=== PATIENT | male | born 1955 | race Caucasian/White ===

== ENCOUNTER 2017-02-14 11:11 | Inpatient (IN) | payer BC, MEDICARE ==
[~2017-02-14] VITALS: Ht 172.7 cm; Wt 68.1 kg
--- NOTE | ~2017-02-14 | CN ---
Consultation Report [facility] [address] [place]. [address] NAME: EVAN GIBBONS : 57 STATUS : ADM Elizabeth PAT#: [id number] AGE: 61 ADM/REG DATE : 02/14/17 MR#: [id number] REPORT SERV DATE: 02/15/17 DICTATED BY: JASON GIL DATE: 02/14/17 REPORT STATUS : Draft TRANSCRIBED BY: MODL DATE: 02/14/17 RENAL CONSULT DATE OF CONSULTATION: 02/14/2017 REASON FOR CONSULTATION: Regarding renal transplant. HISTORY OF PRESENT ILLNESS: A 61-year-old, white male, end-stage renal disease due to IgA nephropathy, status post hemodialysis via left forearm AV fistula with subsequent living unrelated donor renal transplant from an altruistic donor in 03/2016 at [facility] and history of hypertension, who presents with altered mental status and bilateral hand weakness. The patient had a TIA episode approximately two weeks ago after visit at the ER and currently is being admitted for the same. The patient was seen by Dr. Santoro, baby aspirin he suggested at that time. He had an MRI of the brain, head, and neck which only showed chronic changes, no acute changes. Echocardiogram 01/21/2017 revealed normal LV size and function with an EF of 55%. No wall motion abnormalities. Current creatinine is 1.0 with stable electrolytes, and we are asked to follow for renal transplant purposes. PAST MEDICAL HISTORY: As noted above. SURGICAL HISTORY: Renal transplant at [facility] in 03/2016 and left forearm AV fistula. MEDICATIONS ON ADMISSION: Include Tylenol, Fosamax, Norvasc 5 mg b.i.d., aspirin 81 mg daily, vitamin D 2000 units daily, metoprolol 25 mg b.i.d., multivitamin, CellCept 750 mg b.i.d., PhosLo, prednisone 5 mg daily, and Prograf 1 mg b.i.d. ALLERGIES: NO KNOWN DRUG ALLERGIES. SOCIAL HISTORY: Denies tobacco, alcohol, or illicit drug use. FAMILY HISTORY: No history of renal diseases. Mother with cancer. Father with heart disease, peptic ulcer disease, and liver cancer. REVIEW OF SYSTEMS: Negative except as mentioned in HPI. PHYSICAL EXAMINATION: VITAL SIGNS: Temperature is 97.8, blood pressure 112/67, pulse 77, and respiratory rate is 18. GENERAL: A well-developed, well-nourished, white male in no acute distress. HEENT: Normocephalic and atraumatic. Pupils are equal, round, and reactive to light. Mucous membranes are moist. NECK: Supple. No thyromegaly. CARDIOVASCULAR: Regular rate and rhythm. No murmurs appreciated. Normal S1, S2. RESPIRATORY: Clear to auscultation bilaterally with normal respiratory effort. Consultation Report [address] [place]. [address] NAME: EVAN GIBBONS : 57 STATUS : ADM Eilzabeth PAT#: [id number] AGE: 61 ADM/REG DATE : 02/14/17 MR#: [id number] REPORT SERV DATE: 02/15/17 DICTATED BY: JASON GIL. DATE: 02/14/17 REPORT STATUS : Draft TRANSCRIBED BY: TIERRA DATE: 02/14/17 ABDOMEN: Soft, nontender, and nondistended. Positive bowel sounds. EXTREMITIES: No clubbing, cyanosis, or edema. Left forearm AV fistula. Positive bruit and thrill. SKIN: No rashes or ulcerations appreciated. NEURO: Moves all extremities well. No focal deficits noted with strength 5/5 upper and lower extremities. PSYCH: Oriented x3 with flat affect. LABORATORY DATA: Sodium 139, potassium 3.9, chloride 104, BUN 19, creatinine 1.0, glucose is 96, and calcium 9.3. White count 6.4, hemoglobin is 14, and platelet count is 197. ASSESSMENT AND PLAN: 1. Living unrelated donor renal transplant and IgA nephropathy, 03/2016. Continue immunosuppressants and monitor labs. 2. Transient ischemic attack. Neurology evaluation. Prior workup 2 weeks ago was negative including MRI and echocardiogram. Plan is to obtain carotid Dopplers. 3. Bilateral pulmonary nodules. CT scan of the chest has been ordered. [facility] to follow. NCP/MODL Jason Gil M.D. / [id number] CC: MD MICHAEL Valverde JOEL S Kenneth Edward Kokko, MD
--- NOTE | ~2017-02-14 | HP ---
History And Physical [place] [id number] [place] [address] NAME: EVAN GIBBONS : 57 STATUS : ADM Elizabeth PAT#: [id number] AGE: 61 ADM/REG DATE : 02/14/17 MR#: [id number] REPORT SERV DATE: 02/14/17 DICTATED BY: VELMA VILLANUEVA DATE: 02/14/17 REPORT STATUS : Draft TRANSCRIBED BY: MODJoel DATE: 02/14/17 DATE OF ADMISSION: 02/14/2017 ADDENDUM: Since the patient already had an MRI previous time recently, we will defer ordering MRI to neurologist, Dr. Santoro, after she will evaluate the patient, so we will only order bilateral carotid ultrasound and Dr. Santoro will decide if the patient needs an MRI at this time. /TIERRA Velma Villanueva M.D. / [id number] CC: MD MICHAEL Valverde JOEL S
--- NOTE | ~2017-02-14 | CN ---
Consultation Report [facility] [address] [place]. [address] NAME: EVAN GIBBONS : 57 STATUS : ADM Elizabeth PAT#: [id number] AGE: 61 ADM/REG DATE : 02/14/17 MR#: [id number] REPORT SERV DATE: 02/15/17 DICTATED BY: DATE: REPORT STATUS : Draft TRANSCRIBED BY: MODL DATE: 02/15/17 NEUROLOGY CONSULTATION DATE OF CONSULTATION: 02/15/2017 REASON FOR CONSULTATION: TIA, possible seizure. POSTAL SERVICE MAIL PROCESSOR: Dr. Juan Gil. VASCULAR SURGEON: Sinan Van M.D. HISTORY OF PRESENT ILLNESS: The patient is a 61-year-old male, who was recently hospitalized on 01/30/2017 through 02/01/2017 for a TIA. According to the patient and his , he was trying to log into his computer when he was already logged in. He did not realize it. He was trying to show his friends how to play a computerized card game. He could not remember his friends' names. Fortunately, one of his friends was a registered nurse and she recognized his symptoms right away. She realized that he had slurred speech and left facial droop. Consequently, the patient was brought to [facility] Emergency Department right away for further evaluation and treatment. The patient denied any visual trouble. He denied any weakness or numbness in the extremities. He also denied any changes in his gait. The patient's symptoms lasted approximately 45 minutes and then resolved completely. The patient was placed on aspirin and then he went home. Yesterday, the patient experienced numbness in both hands. His noticed that he kept dropping his pen. He is right- handed. He could remember which pills to take and he was experiencing some confusion. The patient mentions that he has been experiencing a lot of fatigue. He sleeps a lot. However, they have a new puppy and he also was taking care of a 7-year-old child. Afraid, fearful that he may be having another TIA. His brought the patient in for further evaluation and treatment. The patient mentioned that his clumsiness and his numbness resolved within about 30 minutes. The patient denied any seizure-like activity. He denied any tongue biting, any incontinence. He denied any weakness in the extremities. He denied any visual changes or changes in his gait. The patient was admitted to our telemetry stroke floor for further evaluation and treatment. PAST MEDICAL HISTORY: IgA nephropathy, TIA, osteoporosis, hypertension, and bilateral pulmonary nodules. PAST SURGICAL HISTORY: Recent kidney transplant (March of 2016), left upper extremity fistula placement, a mole removal from the chest. HOME MEDICATION LIST: Consists of Tylenol p.r.n., Fosamax 70 mg weekly, Norvasc 5 mg twice a day, aspirin 81 mg daily, vitamin D 2000 units daily, Lopressor 25 mg b.i.d., Centrum tablet daily, CellCept 750 mg twice a day, phosphate dibasic 500 mg twice a day, prednisone 5 mg daily, and Prograf 1 mg twice a day. Consultation Report [address] [place]. [address] NAME: EVAN GIBBONS : 57 STATUS : ADM Elizabeth PAT#: [id number] AGE: 61 ADM/REG DATE : 02/14/17 MR#: [id number] REPORT SERV DATE: 02/15/17 DICTATED BY: DATE: REPORT STATUS : Draft TRANSCRIBED BY: MODL DATE: 02/15/17 ALLERGIES: NONE. SOCIAL HISTORY: The patient is . They have one children. 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 He does not smoke. He quit drinking alcohol in his 40s and denies the use of illicit drugs. FAMILY HISTORY: The patient's mother from cancer and PE. His father from heart disease. He had peptic ulcer disease and liver cancer. The patient had one sibling who had alcoholic liver disease and renal transplant. REVIEW OF SYSTEMS: For pertinent positives, please refer to HPI. PHYSICAL EXAMINATION: VITAL SIGNS: The patient is a 61-year-old male, who stands 5 feet 8 inches tall and weighs 150 pounds. He is afebrile. Heart rate 74, respiratory rate 18, O2 saturations on room air 95%, and blood pressure 178/71. NEURO: The patient is awake. He is alert and oriented x4. Speech is clear. Language fluent. He has a bright affect. He can follow simple one or two-step commands with minimal difficulty. Pupils are 3 mm PERRLA. EOMs intact. Peripheral vision via confrontation is full in both schneider. No cranial nerve deficits. Wsjnjf-md-yfai and kwow-io-oktu, no ataxia. No pronator drift, asterixis, tremor, or dysmetria. Upper extremity strength is 4/5 bilaterally. Upper DTRs are 1+ bilaterally. No reported sensory deficits. AV fistula in the left lower arm bruit auscultated, thrill palpated. Lower extremity strength is 4/5 on the left and a 3/5 on the right. Patellar reflexes 1+ bilaterally. Downgoing toes bilaterally. The patient has diminished sensation from the toes to the ankles bilaterally, also diminished vibratory and temperature sensation. Position sense is intact bilaterally. The patient can get in and out of the bed without difficulty. He has somewhat of a wide based gait, but good locomotion. Romberg is positive. The patient is unable to tandem. NECK: No carotid bruits, JVD, or thyromegaly. CHEST: Lung sounds clear. No cough. CARDIAC: Regular rate and rhythm. ABDOMEN: Flat and soft. No tenderness. Active bowel sounds x4 quadrants. LABORATORY DATA: CBC is normal. BMP normal. Procalcitonin 0.05. Troponins are negative x2. TSH is 1.07. CT of the chest, numerous bilateral lung nodules and two liver lesions. CT of the brain, no acute changes. NIH stroke scale is 2. ASSESSMENT AND PLAN: 1. Probable transient ischemic attack; however, the remote possibility of seizure needs to be considered. At this point, the patient's aspirin will be increased to 325 mg daily and Lipitor 40 mg will be added to the patient's medication regimen. He will undergo a repeat MRI of the brain without gadolinium. He will have a carotid duplex study. He Consultation Report [address] [place]. [address] NAME: EVAN GIBBONS : 57 STATUS : ADM Elizabeth PAT#: [id number] AGE: 61 ADM/REG DATE : 02/14/17 MR#: [id number] REPORT SERV DATE: 02/15/17 DICTATED BY: DATE: REPORT STATUS : Draft TRANSCRIBED BY: MODJoel DATE: 02/15/17 had an echocardiogram done in January of 2017, so this will not be repeated. 2. The remote possibility of seizure will need to be considered. The patient will be placed on seizure precautions and have an EEG although his history is not consistent with seizure. 3. The patient has multiple pulmonary nodules and two liver lesions. Paraneoplastic syndrome has to be considered in his differential. He will need a lung biopsy, this will be handled per the hospitalist team. After his imaging is done, we may consider doing an LP. 4. Peripheral neuropathy, most likely secondary to his anti-rejection medications. Thank you again for including us in consultation. This patient's case and plan of care was discussed with my collaborating physician, Dr. Shena Santoro. DICTATED BY: Anya Yung DNP, [facility]CHERYLL Galindo Santoro MD / [id number] CC: MD MICHAEL Valverde NP Larry Sprouse II, M.D.
--- NOTE | ~2017-02-14 | EEG ---
Electroencephalogram [place] [address] [place]. [address] NAME: EVAN GIBBONS : 57 STATUS : DIS IN PAT#: [id number] AGE: 61 ADM/REG DATE : 02/14/17 MR#: [id number] REPORT SERV DATE: 02/23/17 DICTATED BY: KATE RODAS DATE: 02/23/17 REPORT STATUS : Draft TRANSCRIBED BY: TIERRA DATE: 02/23/17 REQUESTING PROVIDER: Anya Yung DNP, [facility]. INTERPRETING PHYSICIAN: Kate Rodas MD - Neurology. REASON FOR EEG: Possible seizures versus TIA. DESCRIPTION: 23 surface electrodes, 10-20 international placement was used. The patient was noted to be awake, drowsy, and confused throughout the study. Photic stimulation was performed. Video monitoring was utilized. Continuous asymmetry of cerebral activity was seen during this study. Underlying low-voltage slowing in delta and theta range was present in the left hemisphere. The areas of involvement were frontal, temporal, and central regions. In addition, abnormal activity was also seen in the right hemisphere with sharp activity noted in frontal regions of the right hemisphere. The patient's monitoring engineer showed sinus rhythm at a rate of approximately 74 beats per minute. No tonic-clonic activity was observed on the video monitoring. The asymmetry of cerebral activity persisted throughout the entire recording. Light sleep was noted with sleep spindles observed. This spindle activity was relatively well formed in the anterior head regions bilaterally. IMPRESSION: MARKEDLY ABNORMAL EEG CHARACTERIZED BY PRESENCE OF PERSISTENT ASYMMETRY OF CEREBRAL ACTIVITY WITH UNDERLYING SLOWING INVOLVING LEFT HEMISPHERE, MOST PROMINENTLY SEEN IN FRONTAL AND TEMPORAL REGIONS. THE PRESENCE OF UNDERLYING PHYSIOLOGICAL ABNORMALITY INVOLVING THE LEFT FRONTOTEMPORAL AREA SHOULD BE CONSIDERED; THIS MAY REPRESENT A SPACE- OCCUPYING LESION, AN ACUTE CEREBROVASCULAR ACCIDENT, OR AN AREA OF POSTSURGICAL ABNORMALITY. CLINICAL CORRELATION IS RECOMMENDED. JOSE/TIERRA Kate Rodas MD / [id number] CC: Rosy Tom JOEL S
--- NOTE | ~2017-02-14 | DS ---
Discharge Summary [id number] [facility] [place]. [address] NAME: EVAN GIBBONS : 57 STATUS : DIS IN PAT#: [id number] AGE: 61 ADM/REG DATE : 02/14/17 MR#: [id number] REPORT SERV DATE: 02/22/17 DICTATED BY: Mariela MORALES DATE: 02/19/17 REPORT STATUS : Draft TRANSCRIBED BY: MODL DATE: 02/19/17 ADMISSION DATE: 02/14/2017 DISCHARGE DATE: 02/19/2017 DISCHARGE DIAGNOSES: 1. Seizures. 2. Acute encephalopathy secondary to seizures, resolved. 3. Bilateral lung nodules. 4. Liver lesions x2. 5. Left adrenal nodule. 6. Status post renal transplant (living unrelated renal donor), 03/2016. The patient is admitted to the Hospitalist Service. CONSULTANTS: 1. Dr. Juan Gil, Nephrology. 2. Dr. Camilo Yung, Hematology/Oncology. 3. Dr. Shena Santoro, Neurology. PROCEDURES: 1. 02/17/2017, CT-guided liver biopsy. 2. 02/19/2017, lumbar puncture. 3. 02/18/2017, bone marrow biopsy. IMAGING AND DIAGNOSTICS: 1. 02/14/2017, CT of the brain without contrast revealed no acute hemorrhage, infarct, or mass lesion. 2. CT of the chest on 02/14/2017 revealed numerous bilateral lung nodules, largest in the right upper lobe measuring 2.4 x 1.3; the patient has at least two liver lesions, largest is in the left lobe, measuring 3.8 x 3.8 cm. The findings are highly suspicious of metastatic disease. Further imaging and biopsy are recommended; the patient also has a 2.2 x 1.6 cm left adrenal nodule that may represent a benign adenoma or additional metastatic disease. 3. Carotid ultrasound, impression; no evidence of significant carotid stenosis. 4. 02/15/2017, MRI of the brain without contrast, minimal chronic microvascular white matter ischemic changes. No evidence of acute abnormality and no significant change compared with 01/31/2017. 5. 02/16/2017, renal ultrasound, impression; within normal limits appearance to the right lower quadrant transplant kidney; atrophic [place] kidneys with multiple bilateral areas of hypoechoic lesions, which may represent complicated cyst and/or solid nodules with two on the right kidney measuring 1.7 and 1.6 cm respectively and a possible left upper pole exophytic lesion, measuring approximately up to 2.3 cm in size; indeterminate 3.5 cm rounded mass in the upper pole of the spleen given that this patient has a liver mass and multiple pulmonary nodules. The splenic lesion may represent a metastasis. 6. 02/17/2017, CT abdomen and pelvis without contrast revealed abnormal appearance of the appendix with possible nodule at the base of the cecum. Appendix is mildly dilated, Discharge Summary [address] [place]. [address] NAME: EVAN GIBBONS : 57 STATUS : DIS IN PAT#: [id number] AGE: 61 ADM/REG DATE : 02/14/17 MR#: [id number] REPORT SERV DATE: 02/22/17 DICTATED BY: Mariela MORALES DATE: 02/19/17 REPORT STATUS : Draft TRANSCRIBED BY: TIERRA DATE: 02/19/17 currently with no periappendiceal inflammatory changes. Re-demonstration of two lesions in the liver, one which was biopsied, and re-demonstration of left adrenal nodule. 7. Repeat MRI of the brain with and without contrast on 02/17/2017 revealed no acute pathology demonstrated in the pre and post contrast MRI of the brain, comparison made to the 02/14/[address] There are some small chronic nonspecific gliotic changes in the centrum semiovale bilaterally, mild amount. These changes are nonspecific, could be secondary to prior trauma, infection, or small-vessel ischemic injury. These changes however would certainly support the clinical observation of previous TIA type episodes in the past. 8. An echocardiogram, 02/19/2017 revealed normal LV size and systolic function, estimated EF 55%. No regional wall motion abnormalities identified. Normal RV size and systolic function. Mild left atrial enlargement. No significant valve disease. Negative intravenous bubble study without evidence of intracardiac shunt. 9. EEG, electroencephalogram, was abnormal, however at the time of this dictation, the report is pending. LABORATORY STUDIES: 1. 02/19/2017, CBC revealed a white count of 8.5, hemoglobin 12.5, hematocrit 39.5, platelets 239,000. 2. 02/19/2017, renal function panel, sodium 143, potassium 3.7, chloride 107, CO2 of 28, BUN 18, creatinine 0.78, GFR 98, glucose 105, calcium 9.1, phosphorus 2.7, albumin 3.0. 3. 02/19/2017, CSF glucose 52 mg/dL, protein CSF 106.8 mg/dL. 4. CSF cell count, colorless, appearance is clear, wbc's in the CSF 178, 1 RBC, 91 lymphocytes, 9 monocytes, 0 segs, 0 eosinophils, and 0 basophils. 5. Hep B surface antibody quantitative is less than 3.10, hep C antibody nonreactive, HIV- 4 nonreactive. 6. Ammonia level 19. 7. Hemoglobin A1c 5.8. 8. Vitamin D 25-hydroxy is 47 ng/mL. 9. Hepatic panel, cholesterol 157, HDL 36, LDL 94. Triglycerides 138, total protein 6.5, albumin 3.5, direct bilirubin 0.2, indirect bilirubin 0.8, total bilirubin 1.0, alkaline phosphatase 96, ALT 17, AST 25, folate level 34.1, vitamin B12 573. 10.On 02/15/2017, a cortisol a.m. level of 12.8. HISTORY OF PRESENT ILLNESS: For complete history, please refer to admission history and physical by Dr. Lesly Farris on 02/14/2017. Briefly, Mr. Gibbons is a pleasant 61-year-old gentleman who was recently discharged from the hospital in January for possible TIA and was discharged with a diagnosis on 02/01/2017 of a transient ischemic attack. The patient and his reported that on the date of his admission, he had an episode which is very similar to the previous one. He was sitting at the table and his asked him if he took his pill, suddenly he started to move his hands and he dropped his head, he was conscious, however, he did not lose consciousness. He kept repeating "I'm confused, I'm confused," constantly moving his hands. The patient did not have any weakness on one side of his body. He just said both sides were weak. He did describe some numbness in both of his hands. He did not have any vision changes. According to his , she thought his speech was a little bit slurred. In the emergency room, the patient's told the admitting physician that Discharge Summary [address] [place]. [address] NAME: EVAN GIBBONS : 57 STATUS : DIS IN PAT#: [id number] AGE: 61 ADM/REG DATE : 02/14/17 MR#: [id number] REPORT SERV DATE: 02/22/17 DICTATED BY: Mariela MORALES DATE: 02/19/17 REPORT STATUS : Draft TRANSCRIBED BY: TIERRA DATE: 02/19/17 they recently saw his primary care provider, Eriberto Lunsford, nurse practitioner, who ordered a chest x-ray and the chest x-ray came back abnormal, showing development of new bilateral upper lobe lung nodules. Mr. Gibbons was admitted to the Hospitalist Service for further evaluation and treatment. HOSPITAL COURSE: Mr. Gibbons was admitted to a telemetry bed. Initially thoughts were he was having a TIA versus seizures. He was placed on bedrest and a consult was placed to Nephrology as well for his kidney transplant and Neurology for possible seizures versus TIA. CT scan of the chest without contrast was ordered as well as bilateral carotid ultrasound. All results are above. He was seen in consultation by Dr. Juan Gil, Nephrology, on 02/14/2017. He was seen in consultation by Neurology on 02/15/2017. He was placed on seizure precautions. An EEG, carotid duplex, and MRI of the brain were ordered. In addition, a biopsy of liver lesion by interventional radiology was also requested. At the time of this dictation, the final pathology report on the liver biopsy is pending on 02/15/2017. Hematology/Oncology consult was placed. The patient was seen in consultation by Dr. Camilo Yung, [place], Oncology on 02/15/2017. Reason for consultation was suspected metastatic cancer. With the abnormal EEG, Mr. Gibbons was started on IV Decadron and Keppra IV initially. Decadron was changed to prednisone later in the course of his stay and Keppra was changed to oral dosing as well. He was also placed on seizure precautions. Mr. Gibbons has had no further seizure activity since admission. I initially saw the patient for the first time on 02/16/2017. He was awaiting liver biopsy and was n.p.o. His only complaint was slight headache and he thought that was "because I haven't eaten." He denied any chest pain, shortness of breath, or other symptoms. On 02/17/2017, physical therapy and occupational therapy orders were received and no acute therapy needs were noted. Dr. 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 Further studies were ordered by Dr. Yung including a bone marrow biopsy, PET scan, LP, and an echocardiogram. At the time of this dictation, results from the bone marrow biopsy and PET scan were pending. I will mention that on admission Mr. Gibbons is antihypertensive's medication amlodipine 5 mg p.o. b.i.d. was held and he has been normotensive throughout the majority of his hospitalization and I will defer resuming this medication to his primary care provider and/or railroad signal operator. On 02/19/2017, Mr. Gibbons was in stable condition. His vital signs were stable. Blood pressure 131/77, heart rate 72, respirations 17, O2 saturation 94-95% on room air and he was afebrile. Dr. Yung stated that the patient could be discharged home after his lumbar puncture today and then follow up on Wednesday at [facility] in [place] with the Medical Oncology Clinic and then follow up with him on 02/23/2017 to likely start outpatient chemotherapy treatment. On the afternoon of 02/19/2017, Mr. Gibbons had his echocardiogram, results are as above. Again, his vital signs remained stable. He was alert and oriented x3. His lungs were clear to auscultation bilaterally. Cardiovascular: Regular rate and rhythm. No murmurs, rubs, or gallops. Abdomen: Soft, nontender. Active bowel sounds. Peripheral pulses palpable with no edema, cyanosis, or clubbing. The vehicle monitor technician showed sinus rhythm. His rate was in the 70s, so it was felt that Mr. Gibbons could be discharged home safely and follow up outpatient in [place] on Wednesday. Therefore, he was in fact discharged home on 02/19/2017. DISCHARGE INSTRUCTIONS: 1. Diet: As tolerated. 2. Activity: As tolerated. Discharge Summary [address] [place]. [address] NAME: EVAN GIBBONS : 57 STATUS : DIS IN PAT#: [id number] AGE: 61 ADM/REG DATE : 02/14/17 MR#: [id number] REPORT SERV DATE: 02/22/17 DICTATED BY: Mariela MORALES DATE: 02/19/17 REPORT STATUS : Draft TRANSCRIBED BY: TIERRA DATE: 02/19/17 3. Discharge Medications:. a. Vitamin D 2000 units p.o. daily. b. Keppra 500 mg two tablets p.o. q.12 hours. c. Lopressor 25 mg p.o. b.i.d. d. Prograf 1 mg p.o. b.i.d. e. Fosamax 70 mg p.o. once a week on Wednesday. f. Prednisone 20 mg p.o. daily with breakfast. g. Multivitamin with minerals one tablet p.o. daily. h. Phosphorus 500 mg p.o. b.i.d. i. Tylenol 1000 mg p.o. q.4 hours p.r.n. j. Aspirin 81 mg p.o. daily. Other discharge instructions include he will follow up with Dr. Luna, 02/22/2017 at [facility] for lab work at 1:15 and to see the doctor at 3 p.m. He will follow up with his PCP, Eriberto Lunsford, nurse practitioner as scheduled. He will have outpatient followup with Harriet Rashid on 04/12/2017 at 9 a.m. He will also follow up with his railroad signal operator as scheduled. My collaborating physician on this patient was Dr. Christiano Morales. PERI/TIERRA Earlene Ngo [facility] Mariela Morales M.D. / [id number] CC: Rosy Tom JOEL S Nilesh C Patel, M.D. Darrell Johnson, M.D.
--- NOTE | ~2017-02-14 | HP ---
History And Physical [place] [address] [facility] [place]. [address] NAME: EVAN GIBBONS : 57 STATUS : ADM Elizabeth PAT#: [id number] AGE: 61 ADM/REG DATE : 02/14/17 MR#: [id number] REPORT SERV DATE: 02/14/17 DICTATED BY: VELMA VILLANUEVA DATE: 02/14/17 REPORT STATUS : Draft TRANSCRIBED BY: TIERRA DATE: 02/14/17 DATE OF ADMISSION: 02/14/2017 HISTORY OF PRESENT ILLNESS: The patient is a 61-year-old male, who was recently discharged from the hospital. He was admitted on 01/30/2017 for possible TIA and he was discharged on 02/01/2017 with a diagnosis of transient ischemic attack. The patient and his reported that today he had episode, which was very similar to the previous one. Today, the patient was sitting at the table and the asked if he took his pills, suddenly he started to move his hands and he dropped his head, and he was conscious, and he did not lose his consciousness. He was repeating, "I am confused, I am confused" with constantly moving his hands. Right now, the patient said that, I am confused. The patient did not have any weakness on one side of the body, he said both sides were weak. He had numbness in both hands. He did not have any vision changes. Regarding speech, said maybe speech was a little bit slurred. He had similar symptoms last time when he presented. 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 At that time, he had left-sided facial droop, so this time reported that he did not have facial droop. Currently, the patient does not have any complaints and also the patient did not have any visual changes. He is weak. He denies any chest pain, no shortness of breath. No abdominal pain. No fever. No rash. The patient and reported that they saw Eriberto Lunsford nurse practitioner, recently on 02/12/2017, he ordered a chest x-ray, which was done on 02/12/2017, two days ago and it showed that the patient developed new bilateral peripheral upper lobe lung nodules and it was recommended further characterization with a chest CT and size on this nodule from 1.5 to 1.2 cm in the right upper lobe. There is a 2 cm nodule in the peripheral aspect of the left mid lung. PAST MEDICAL HISTORY: Known for as I dictated above, recent TIA, for which he was seen by neurologist Dr. Santoro and baby aspirin was recommended to take as well as at that time, he had MRI of the brain, head, and neck, which showed only chronic changes, no acute changes as well as he had echocardiogram done on 01/21/2017, which showed normal left ventricular size and systolic function with ejection fraction of 55%. No regional wall motion abnormalities, normal right ventricular size and systolic function, mild left atrial enlargement, no significant valve disease, negative bubble study. OTHER MEDICAL PROBLEMS: Include history of kidney transplant, which the patient had in 03/2016. The patient does not have history of hypertension according to and then she said that he has history of hypertension, just blood pressure controlled, and the patient takes blood pressure medications. So, he has history of hypertension. PAST SURGICAL HISTORY: Includes history of kidney transplant at [facility] and also history of left upper arm AV fistula placement. SOCIAL HISTORY: No tobacco. No alcohol. No recreational drug use. He quit drinking before History And Physical [address] [address] NAME: EVAN GIBBONS : 57 STATUS : ADM Elizabeth PAT#: [id number] AGE: 61 ADM/REG DATE : 02/14/17 MR#: [id number] REPORT SERV DATE: 02/14/17 DICTATED BY: VELMA VILLANUEVA DATE: 02/14/17 REPORT STATUS : Draft TRANSCRIBED BY: MODL DATE: 02/14/17 age of 41. He is . He is on disability. FAMILY HISTORY: Mother had cancer, with some type of clot that made her have difficulty with breathing as he described, probably pulmonary embolism. Father had heart disease, peptic ulcer, and liver cancer. ALLERGIES: NO KNOWN DRUG ALLERGIES. HOME MEDICATIONS: Include Tylenol 1000 mg p.o. q.4 hours p.r.n., Fosamax 70 mg p.o. daily, Norvasc 5 mg p.o. b.i.d., aspirin 81 mg daily, vitamin D 2000 units p.o. daily, metoprolol 25 p.o. twice a day, multivitamins daily, CellCept 750 p.o. b.i.d., PhosLo 50 mg p.o. twice a day, prednisone 5 mg daily, and Prograf 1 mg p.o. twice a day. REVIEW OF SYSTEMS: All 14-point review of systems done and negative except what is stated in the history of present illness. PHYSICAL EXAMINATION: GENERAL: Thin male, not in acute distress, resting quietly. VITAL SIGNS: Blood pressure 112/67, temperature 97.8, heart rate 77, respiratory rate 14, oxygen saturation 100 on room air. HEENT: Head atraumatic, normocephalic. Conjunctivae clear. Pupils are equal and reactive to light and accommodation. Extraocular muscles are intact. NECK: Supple. Trachea is midline. No supraclavicular or cervical lymphadenopathy. LUNGS: Diminished breath sounds bilaterally. Decreased respiratory effort. CARDIOVASCULAR SYSTEM: Regular rate and rhythm. Point of maximal impulse not displaced. ABDOMEN: Soft, nontender, nondistended. Positive normoactive bowel sounds. EXTREMITIES: No clubbing, cyanosis, or edema. SKIN: Normal color, slightly decreased turgor. PSYCHIATRIC: Normal mood, flat affect. NEUROLOGICAL: Muscle strength is 5/5 bilaterally on upper and lower extremities. Deep tendon reflexes 2/4 bilaterally on upper and lower extremities. There is no numbness on his face. There is no numbness on his arms and legs. He is awake, alert, oriented to time, place, and person. Cranial nerves 3-12 are grossly intact. LABORATORY RESULTS: Sodium 139, potassium 3.9, chloride 104, carbon dioxide 27, BUN 19, creatinine is 1, blood sugar is 96. ALT 22, AST 32, his creatinine on 02/12/2017 was 0.95. White count 6.4, hemoglobin 14, hematocrit 43.7, platelet count 197. PT 14.3. INR 1.1. CT of the brain without contrast, no acute hemorrhage, no infarction, no mass lesion. CBC, white count 6.4, hemoglobin 14, hematocrit 43.7, and platelet count 197. Chest x-ray which was done on 02/12/2017 showed new bilateral peripheral upper lobe lung nodules. Further evaluation with CT was recommended. EKG showed normal sinus rhythm with a rate of 73, minimal voltage criteria for LVH, maybe normal variant, anterior infarction of undetermined age, ventricular rate of 73. History And Physical [address] [place]. [address] NAME: EVAN GIBBONS : 57 STATUS : ADM Elizabeth PAT#: [id number] AGE: 61 ADM/REG DATE : 02/14/17 MR#: [id number] REPORT SERV DATE: 02/14/17 DICTATED BY: VELMA VILLANUEVA DATE: 02/14/17 REPORT STATUS : Draft TRANSCRIBED BY: TIERRA DATE: 02/14/17 ASSESSMENT AND PLAN: 1. This is a 61-year-old male with a history of recent kidney transplant, presented with second episode of altered mental status, possible transient ischemic attack versus possible seizures. 2. New diagnosis of pulmonary nodules on the chest x-ray, needs CT of the chest. 3. History of kidney transplant. 4. History of hypertension. PLAN: 1. We will admit the patient to cardiac telemetry bed. For his possible TIA versus seizures, we will do MRI of the brain and also the patient already had echocardiogram last time. We will also order bilateral carotid ultrasound on this patient and we will consult neurologist Dr. Santoro. 2. Regarding his kidney function, he is status post kidney transplant. His creatinine is 1, last time is 0.9, and his BUN is slightly elevated. He is dehydrated, have not had fluid, he did not drink much fluid. We will start him on IV fluid hydration with normal saline and also with the evidence of pulmonary nodules, we will consult [employer] on this patient. Regarding hypertension, we will give him liberal blood pressure control since there is a possibility of stroke or TIA. We will give him medications as needed. In House Counsel will be consulted. 3. For the pulmonary nodules on the chest x-ray, we will order CT of the chest without contrast because the patient had a kidney transplant. He should not be given any contrast as well as if the CT of the chest will be abnormal, my partner should consider pulmonary consultation. This patient is at risk for development of opportunistic infection. He is immunosuppressed, a kidney transplant patient, so CT of the chest and pulmonary consult will be warranted after CT of the chest. Everything was discussed with the patient and his . My partner will see starting tomorrow morning. MG/MODL Velma Villanueva M.D. / [id number] CC: MD Eriberto Valverde MD Nilesh C Patel, M.D.
--- NOTE | ~2017-02-14 | CN ---
Consultation Report [facility] [address] [place]. [address] NAME: EVAN GIBBONS : 57 STATUS : ADM Elizabeth PAT#: [id number] AGE: 61 ADM/REG DATE : 02/14/17 MR#: [id number] REPORT SERV DATE: 02/16/17 DICTATED BY: CAMILO PALMER DATE: 02/15/17 REPORT STATUS : Draft TRANSCRIBED BY: MODL DATE: 02/15/17 CONSULTATION DATE OF CONSULTATION: 02/15/2017 REASON FOR CONSULTATION: Suspected metastatic cancer. HISTORY: Mr. Gibbons is a 61-year-old man who was admitted here on 01/30/2017 with new-onset TIA with negative echocardiogram or other evidence for etiology of his TIA. He now is re- admitted with similar confusion, expressive aphasia, and possible seizure activity. He had a chest x-ray which revealed some new pulmonary nodules compared to several weeks ago and a CT scan of the chest revealed bilateral pulmonary nodules measuring up to 2.[address] scan was without contrast, and the upper abdomen including the liver appeared to show two hepatic lesions, the largest measuring about 3.8 cm. He denies any cough, shortness of breath, sputum production, fevers, or any soaking night sweats. He has had about a 10-pound weight loss since his kidney transplant at [facility] back in March of last year. He denies any visible blood in the urine or sputum. He denies any headache or change in vision. He is continued on anti-rejection/immunosuppressive medications since his kidney transplant in March of last year and followup at [facility] has not revealed any evidence of rejection or other complications post transplant. He is followed locally by calciminer, Dr. Gil. PAST MEDICAL AND SURGICAL HISTORY: Significant for hypertension and IgA nephropathy, status post kidney transplant, 03/17/2016, at [facility]. MEDICATIONS: Medications prior to admission included tacrolimus, prednisone 5 mg p.o. daily, CellCept, Lopressor, aspirin 81 mg daily, Norvasc 5 mg daily, Fosamax 70 mg weekly, Tylenol p.r.n., vitamin D supplementation, multivitamin, and potassium phosphate tablets. ALLERGIES: HE HAS NO KNOWN DRUG ALLERGIES. SOCIAL HISTORY: He lives with his in [place] and a 7-year-old adopted daughter. He denies any cigarette smoking, alcohol, or drug use. FAMILY HISTORY: Father had a history of cancer of the stomach with liver metastases. REVIEW OF SYSTEMS: A 13-point review of systems as per HPI. Otherwise, unremarkable and/or negative. PHYSICAL EXAMINATION: VITAL SIGNS: He is currently afebrile with normal vital signs. GENERAL: A well-developed, well-nourished man in no acute distress. Alert and oriented x3. HEENT: With NC/AT and sclerae anicteric. Oropharynx without visible lesions or thrush. NECK: No JVD or adenopathy. Supple. HEART: Regular rate and rhythm without murmurs. Consultation Report [address] [place]. [address] NAME: EVAN GIBBONS : 57 STATUS : ADM Elizabeth PAT#: [id number] AGE: 61 ADM/REG DATE : 02/14/17 MR#: [id number] REPORT SERV DATE: 02/16/17 DICTATED BY: CAMILO PALMER DATE: 02/15/17 REPORT STATUS : Draft TRANSCRIBED BY: TIERRA DATE: 02/15/17 LUNGS: Clear to auscultation and percussion. ABDOMEN: Scaphoid. Active bowel sounds. Soft and nontender. No palpable organomegaly or masses. EXTREMITIES: Without cyanosis, clubbing, or edema. Pulses intact distally. LYMPHATICS: Lymph node survey without palpable cervical, supraclavicular, axillary, or inguinal nodes. NEUROLOGIC: Grossly intact. The patient is sitting up in bed. SKIN: Without jaundice, rash, petechiae, or purpura. LABORATORY DATA: Lab and x-ray data reviewed. ASSESSMENT AND RECOMMENDATIONS: Mr. Gibbons is an immunocompromised patient post kidney transplant in 03/2016 at [facility], now developing new-onset bilateral pulmonary nodules as well as liver lesion x2 on CT scan of the chest without contrast. Neurology evaluation is ongoing regarding recent mental status change with transient ischemic attack like symptoms versus seizure activity but initial brain imaging does not reveal any evidence of lesion to explain seizure activity. The new onset of pulmonary nodularity in an immunocompromised patient would most likely support a diagnosis of lymphoma but other carcinomas are also possible. Recommend to go and get a CT scan of the abdomen and pelvis without IV contrast and an ultrasound of the transplanted kidney to make sure there is any occult tumor evident. Tumor markers have already been ordered as well as a CT-guided biopsy of the liver lesion which appears appropriate at this time. We will also check an LDH which can be elevated in lymphoma. The patient agrees to proceed with these evaluations noting that he would be willing to consider treatment that might even necessitate stopping immunosuppressive therapy and resulting in requirement to resume dialysis. TOR/MODL Camilo Palmer M.D. / [id number] CC: MD Eriberto Valverde
[~2017-02-14 11:11] MED LIST: ACET500CAP PO; ASAB PO; CELLCEPT5 PO; CENTRUM PO; DIOV80 PO; FOSAMAX70 MG PO; LOP25 PO; NEPHRO PO; NORV5 PO; P5 PO; PHOSPHA 250 PO; PROGRAF1 PO; SEVE800T PO; VASOTEC10 PO; VITAMIN D2000 UNIT PO
[2017-02-14 11:59] LABS: BASOPHILS 0.5 %; BASOPHILS ABSOLUTE 0.03 10/3/uL (0.0-0.16); EOSINOPHILS 1.7 %; EOSINOPHILS ABSOLUTE 0.11 10/3/uL (0.0-0.53); HEMATOCRIT 43.7 % (40.0-51.0); IMMATURE GRANULOCYTES 0.3 %; IMMATURE GRANULOCYTES ABSOLUTE 0.02 10/3/uL (0.0-0.11); LYMPHOCYTES 29.7 %; MANUAL DIFF NO %; MEAN CORPUSCULAR HEMOGLOB 29.4 pg (26.0-34.0); MEAN CORPUSCULAR VOLUME 91.8 fL (80-100); MEAN PLATELET VOLUME 9.7 fL (9.2-13.0); MONOCYTES 9.2 %; MONOCYTES ABSOLUTE 0.59 10/3/uL (0.21-1.20); NEUTROPHILS 58.6 %; NEUTROPHILS ABSOLUTE 3.75 10/3/uL (2.02-8.40); PLATELET COUNT 197 10/3/uL (150-400); RBC DISTRIBUTION WIDTH 14.6 % (12.0-16.0); RED CELL COUNT 4.76 10/6/uL (4.7-6.1); WHITE BLOOD CELLS 6.4 10/3/uL (4.5-10.5)
[2017-02-14 12:06] LABS: INTERNATIONAL NORMAL RATI 1.1 UNITS (-); PARTIAL THROMBO TIME 27.5 SEC (22.5-37.2); PROTIME (NOT ORD) 14.3 SEC (12.0-14.5)
[2017-02-14 12:14] LABS: A/G RATIO 1.1 (0.7-1.9); ALBUMIN 3.8 G/DL (3.5-5.0); ALKALINE PHOSPHATASE 100 U/L (45-117); BUN (BLOOD UREA NITROGEN) 19 MG/DL (6-23); CALCIUM, SERUM 9.3 MG/DL (8.5-10.4); CHLORIDE, SERUM 104 MMOL/L (96-112); CO2 (CARBON DIOXIDE) 27 MMOL/L (24-34); GFR AFRICAN AMERICAN 94 ML/MIN (>=60); GFR NON AFRICAN AMERICAN 81 ML/MIN (>=60); GLOBULIN 3.4 G/DL (2.5-4.1); GLUCOSE, SERUM 96 MG/DL (60-99); POTASSIUM, SERUM 3.9 MMOL/L (3.5-5.3); SGOT(AST) 32 U/L (5-40); SGPT(ALT) 22 U/L (5-65); SODIUM, SERUM 139 MMOL/L (135-148); TOTAL PROTEIN 7.2 G/DL (6.0-8.5)
[2017-02-14 17:39] LABS: TROPONIN I <0.02 NG/ML (<0.05)
[2017-02-14 17:42] LABS: PHOSPHORUS, SERUM 2.3 MG/DL (2.5-4.5)
[2017-02-15 06:02] LABS: BASOPHILS 0.6 %; BASOPHILS ABSOLUTE 0.04 10/3/uL (0.0-0.16); EOSINOPHILS ABSOLUTE 0.07 10/3/uL (0.0-0.53); HEMOGLOBIN 13.3 g/dL (13.6-17.8); LYMPHOCYTES 28.9 %; LYMPHOCYTES ABSOLUTE 1.97 10/3/uL (0.67-4.30); MEAN CORPUS HGB CONC 31.7 g/dL (32.0-36.0); MEAN CORPUSCULAR VOLUME 91.5 fL (80-100); MONOCYTES 8.1 %; MONOCYTES ABSOLUTE 0.55 10/3/uL (0.21-1.20); NEUTROPHILS 61.4 %; NEUTROPHILS ABSOLUTE 4.19 10/3/uL (2.02-8.40); PLATELET COUNT 215 10/3/uL (150-400); RBC DISTRIBUTION WIDTH 14.3 % (12.0-16.0); RED CELL COUNT 4.59 10/6/uL (4.7-6.1); WHITE BLOOD CELLS 6.8 10/3/uL (4.5-10.5)
[2017-02-15 06:05] LABS: MANUAL DIFF NO %
[2017-02-15 06:23] LABS: ALBUMIN 3.4 G/DL (3.5-5.0); BUN (BLOOD UREA NITROGEN) 15 MG/DL (6-23); CALCIUM, SERUM 9.2 MG/DL (8.5-10.4); CHLORIDE, SERUM 104 MMOL/L (96-112); CO2 (CARBON DIOXIDE) 27 MMOL/L (24-34); CREATININE 0.79 MG/DL (0.70-1.30); GFR AFRICAN AMERICAN 113 ML/MIN (>=60); GFR NON AFRICAN AMERICAN 98 ML/MIN (>=60); GLUCOSE, SERUM 91 MG/DL (60-99); PHOSPHORUS, SERUM 3.6 MG/DL (2.5-4.5); POTASSIUM, SERUM 3.8 MMOL/L (3.5-5.3); SODIUM, SERUM 138 MMOL/L (135-148); TROPONIN I <0.02 NG/ML (<0.05)
[2017-02-15 06:35] LABS: PROCALCITONIN <0.05 ng/mL (<0.5)
[2017-02-15 12:26] LABS: ALBUMIN 3.5 G/DL (3.5-5.0); CHOL/HDL RATIO(NOT ORDER) 4.4 (0-5); DIRECT BILIRUBIN 0.2 MG/DL (0.0-0.4); INDIRECT BILIRUBIN(NOT ORDER) 0.8 MG/DL (0.1-0.9); TOTAL PROTEIN 6.5 G/DL (6.0-8.5)
[2017-02-15 12:27] LABS: FOLATE 34.1 NG/ML (>5.2)
[2017-02-15 21:33] LABS: GLYCOHEMOGLOBIN (HbA1c) 5.8 % (4.7-6.1)
[2017-02-16 06:03] LABS: BASOPHILS 0.4 %; BASOPHILS ABSOLUTE 0.03 10/3/uL (0.0-0.16); EOSINOPHILS 1.7 %; EOSINOPHILS ABSOLUTE 0.13 10/3/uL (0.0-0.53); HEMATOCRIT 41.1 % (40.0-51.0); HEMOGLOBIN 13.2 g/dL (13.6-17.8); IMMATURE GRANULOCYTES 0.1 %; IMMATURE GRANULOCYTES ABSOLUTE 0.01 10/3/uL (0.0-0.11); LYMPHOCYTES 24.9 %; MANUAL DIFF NO %; MEAN CORPUS HGB CONC 32.1 g/dL (32.0-36.0); MEAN CORPUSCULAR HEMOGLOB 29.3 pg (26.0-34.0); MEAN CORPUSCULAR VOLUME 91.3 fL (80-100); MONOCYTES 7.6 %; MONOCYTES ABSOLUTE 0.58 10/3/uL (0.21-1.20); NEUTROPHILS 65.3 %; NEUTROPHILS ABSOLUTE 4.99 10/3/uL (2.02-8.40); PLATELET COUNT 218 10/3/uL (150-400); RBC DISTRIBUTION WIDTH 14.2 % (12.0-16.0); WHITE BLOOD CELLS 7.6 10/3/uL (4.5-10.5)
[2017-02-16 06:09] LABS: INTERNATIONAL NORMAL RATI 1.1 UNITS (-); PARTIAL THROMBO TIME 28.9 SEC (22.5-37.2); PROTIME (NOT ORD) 14.3 SEC (12.0-14.5)
[2017-02-16 06:20] LABS: ALPHA FETOPROTEIN (TUMOR) 1.4 NG/ML (< 8.0); BUN (BLOOD UREA NITROGEN) 13 MG/DL (6-23); CA-19-9 7.6 U/ML (< 37.0); CALCIUM, SERUM 9.3 MG/DL (8.5-10.4); CHLORIDE, SERUM 102 MMOL/L (96-112); CO2 (CARBON DIOXIDE) 27 MMOL/L (24-34); GFR AFRICAN AMERICAN 113 ML/MIN (>=60); GFR NON AFRICAN AMERICAN 97 ML/MIN (>=60); GLUCOSE, SERUM 97 MG/DL (60-99); POTASSIUM, SERUM 3.7 MMOL/L (3.5-5.3); SODIUM, SERUM 138 MMOL/L (135-148)
[2017-02-17 06:38] LABS: BASOPHILS 0 %; EOSINOPHILS 0 %; HEMATOCRIT 40.8 % (40.0-51.0); HEMOGLOBIN 13.1 g/dL (13.6-17.8); IMMATURE GRANULOCYTES 0.3 %; IMMATURE GRANULOCYTES ABSOLUTE 0.01 10/3/uL (0.0-0.11); LYMPHOCYTES 19.2 %; LYMPHOCYTES ABSOLUTE 0.74 10/3/uL (0.67-4.30); MANUAL DIFF NO %; MEAN CORPUS HGB CONC 32.1 g/dL (32.0-36.0); MEAN CORPUSCULAR HEMOGLOB 29.2 pg (26.0-34.0); MEAN CORPUSCULAR VOLUME 91.1 fL (80-100); MEAN PLATELET VOLUME 9.9 fL (9.2-13.0); MONOCYTES ABSOLUTE 0.04 10/3/uL (0.21-1.20); NEUTROPHILS 79.5 %; NEUTROPHILS ABSOLUTE 3.07 10/3/uL (2.02-8.40); PLATELET COUNT 224 10/3/uL (150-400); RBC DISTRIBUTION WIDTH 14.3 % (12.0-16.0); RED CELL COUNT 4.48 10/6/uL (4.7-6.1); WHITE BLOOD CELLS 3.9 10/3/uL (4.5-10.5)
[2017-02-17 06:52] LABS: BUN (BLOOD UREA NITROGEN) 16 MG/DL (6-23); CALCIUM, SERUM 9.1 MG/DL (8.5-10.4); CHLORIDE, SERUM 103 MMOL/L (96-112); CO2 (CARBON DIOXIDE) 25 MMOL/L (24-34); CREATININE 0.71 MG/DL (0.70-1.30); GFR AFRICAN AMERICAN 118 ML/MIN (>=60); GFR NON AFRICAN AMERICAN 102 ML/MIN (>=60); GLUCOSE, SERUM 143 MG/DL (60-99); PHOSPHORUS, SERUM 3.4 MG/DL (2.5-4.5); SODIUM, SERUM 137 MMOL/L (135-148)
[2017-02-18 06:48] LABS: BASOPHILS 0 %; EOSINOPHILS 0 %; HEMATOCRIT 39.6 % (40.0-51.0); HEMOGLOBIN 12.9 g/dL (13.6-17.8); IMMATURE GRANULOCYTES 0.1 %; IMMATURE GRANULOCYTES ABSOLUTE 0.01 10/3/uL (0.0-0.11); LYMPHOCYTES 13.5 %; LYMPHOCYTES ABSOLUTE 1.02 10/3/uL (0.67-4.30); MEAN CORPUS HGB CONC 32.6 g/dL (32.0-36.0); MEAN CORPUSCULAR HEMOGLOB 29.5 pg (26.0-34.0); MEAN CORPUSCULAR VOLUME 90.6 fL (80-100); MEAN PLATELET VOLUME 10.4 fL (9.2-13.0); MONOCYTES 2.6 %; NEUTROPHILS 83.8 %; NEUTROPHILS ABSOLUTE 6.32 10/3/uL (2.02-8.40); PLATELET COUNT 233 10/3/uL (150-400); RBC DISTRIBUTION WIDTH 14.2 % (12.0-16.0); RED CELL COUNT 4.37 10/6/uL (4.7-6.1)
[2017-02-18 06:49] LABS: MANUAL DIFF NO %; WHITE BLOOD CELLS 7.6 10/3/uL (4.5-10.5)
[2017-02-18 07:09] LABS: BUN (BLOOD UREA NITROGEN) 19 MG/DL (6-23); CALCIUM, SERUM 9.2 MG/DL (8.5-10.4); CHLORIDE, SERUM 105 MMOL/L (96-112); CO2 (CARBON DIOXIDE) 26 MMOL/L (24-34); CREATININE 0.75 MG/DL (0.70-1.30); GFR AFRICAN AMERICAN 116 ML/MIN (>=60); GFR NON AFRICAN AMERICAN 100 ML/MIN (>=60); GLUCOSE, SERUM 161 MG/DL (60-99); SODIUM, SERUM 138 MMOL/L (135-148)
[2017-02-18 12:32] LABS: HEP B SUR AB QUANTITATIVE < 3.10 mIU/mL (>=10.0)
[2017-02-18 13:10] LABS: HEPATITIS C ANTIBODY NON-REACTIVE (NON-REACT)
[2017-02-18 13:11] LABS: HIV COMBO NON-REACTIVE (NON REAC)
[2017-02-18 13:25] LABS: RETICULOCYTE COUNT 0.9 % (0.5-2.5); RETICULOCYTE COUNT ABSOLUTE 39.4 10/3/uL (20.2-119.8)
[2017-02-19 05:22] LABS: BASOPHILS 0 %; EOSINOPHILS 0 %; HEMATOCRIT 39.5 % (40.0-51.0); HEMOGLOBIN 12.5 g/dL (13.6-17.8); IMMATURE GRANULOCYTES 0.2 %; IMMATURE GRANULOCYTES ABSOLUTE 0.02 10/3/uL (0.0-0.11); LYMPHOCYTES 24.8 %; LYMPHOCYTES ABSOLUTE 2.11 10/3/uL (0.67-4.30); MEAN CORPUS HGB CONC 31.6 g/dL (32.0-36.0); MEAN CORPUSCULAR HEMOGLOB 28.7 pg (26.0-34.0); MEAN CORPUSCULAR VOLUME 90.6 fL (80-100); MEAN PLATELET VOLUME 10.8 fL (9.2-13.0); MONOCYTES 5.4 %; MONOCYTES ABSOLUTE 0.46 10/3/uL (0.21-1.20); NEUTROPHILS 69.6 %; NEUTROPHILS ABSOLUTE 5.92 10/3/uL (2.02-8.40); PLATELET COUNT 239 10/3/uL (150-400); RBC DISTRIBUTION WIDTH 14.4 % (12.0-16.0); RED CELL COUNT 4.36 10/6/uL (4.7-6.1); WHITE BLOOD CELLS 8.5 10/3/uL (4.5-10.5)
[2017-02-19 05:23] LABS: MANUAL DIFF NO %
[2017-02-19 05:25] LABS: BUN (BLOOD UREA NITROGEN) 18 MG/DL (6-23); CALCIUM, SERUM 9.1 MG/DL (8.5-10.4); CHLORIDE, SERUM 107 MMOL/L (96-112); CO2 (CARBON DIOXIDE) 28 MMOL/L (24-34); CREATININE 0.78 MG/DL (0.70-1.30); GFR AFRICAN AMERICAN 114 ML/MIN (>=60); GFR NON AFRICAN AMERICAN 98 ML/MIN (>=60); PHOSPHORUS, SERUM 2.7 MG/DL (2.5-4.5); POTASSIUM, SERUM 3.7 MMOL/L (3.5-5.3); SODIUM, SERUM 143 MMOL/L (135-148)
[2017-02-19 05:27] LABS: GLUCOSE, SERUM 105 MG/DL (60-99)
[2017-02-19 10:03] LABS: TOTAL PROTEIN, CSF 106.8 MG/DL (15-45)
[2017-02-19 10:15] LABS: CSF BASO 0 % (NO REF RANGE); CSF EOS 0 % (0-1); CSF LYMPH (NOT ORD) 91 % (28-96); CSF MONO 9 % (16-56); CSF SEGS (NOT ORD) 0 % (0-7)
[2017-02-19 10:16] LABS: CSF APPEARANCE (NOT ORD) CLEAR (CLEAR); CSF COLOR (NOT ORD) COLORLESS (COLORLESS); CSF XANTHROCHROMIA NEG (NEG)
[2017-02-19 10:17] LABS: CSF WBC (NOT ORD) 178 /uL (0-10)
[2017-02-19 10:18] LABS: CSF RBC (NOT ORD) 1 MM3 (NO REFERENCE)
[2017-02-19] MEDS ORDERED: KEPPRA1000 MG PO (19:32)
[2017-02-19] MEDS ORDERED: P20 PO (19:33)
[2017-02-23 02:50] LABS: EBV DNA QNT LOG COPIES 3.7 (NOTDET); EBV DNA QNT PCR 5200 (()); SPECIMEN SOURCE Serum (())
== END 2017-02-19 20:49 | disposition home or self-care (01) | DRG 100 ==
LOC: ER 11:11 → 1SO 13:53
PROVIDERS: Emergency Medicine; Internal Medicine; Internal Medicine Hematology & Oncology; Nurse Practitioner; Registered Nurse
PROC: 0FB23ZX Excision of Left Lobe Liver, Percutaneous Approach, Diagnostic (ICD-10-PCS; 2017-02-16)
PROC: 07DR3ZX Extraction of Iliac Bone Marrow, Percutaneous Approach, Diagnostic (ICD-10-PCS; 2017-02-18)
PROC: 009U3ZZ Drainage of Spinal Canal, Percutaneous Approach (ICD-10-PCS; principal; 2017-02-19)
PROC: B01B1ZZ Fluoroscopy of Spinal Cord using Low Osmolar Contrast (ICD-10-PCS; 2017-02-19)
DX: G40.909 Epilepsy, unspecified, not intractable, without status epilepticus (principal); G93.49 Other encephalopathy; C85.98 Non-Hodgkin lymphoma, unspecified, lymph nodes of multiple sites; I12.0 Hypertensive chronic kidney disease with stage 5 chronic kidney disease or end stage renal disease; N02.8 Recurrent and persistent hematuria with other morphologic changes; N18.6 End stage renal disease; Z94.0 Kidney transplant status; Z99.2 Dependence on renal dialysis; G62.9 Polyneuropathy, unspecified; R91.1 Solitary pulmonary nodule; Z79.82 Long term (current) use of aspirin; Z79.899 Other long term (current) drug therapy; Z86.73 Personal history of transient ischemic attack (TIA), and cerebral infarction without residual deficits
CPT/HCPCS: 47000; 62270; 70450; 70551; 70553; 71250; 74176; 76775; 77003; 77012; 78815; 80048; 80053; 80061; 80069; 80076; 82105; 82140; 82306; 82378; 82533; 82607; 82746; 82945; 82962; 83036; 83615; 83735; 84100; 84145; 84157; 84425; 84443; 84484; 85025; 85045; 85610; 85730; 86301; 86361; 86706; 86803; 87070; 87205; 87389; 87799; 88112; 88305; 88307; 88311; 88312; 88313; 88331; 88333; 88334; 88341; 88342; 88360; 89051; 93005; 93308; 93880; 95816; 97161-GP; 97165-GO; 99285; A9270-GY; A9552; A9577; G8978-CH-GP; G8979-CH-GP; G8980-CH-GP; J1953; J2250; J3010; J7507